=== PATIENT | male | born 2005 | race Hispanic/Latino ===

== ENCOUNTER 2023-12-01 09:55 | Emergency (ER) | payer SELFPAY ==
[2023-12-01] VITALS (15 sets, daily range): BP systolic 101–133; BP diastolic 60–88
[2023-12-01] MEDS ORDERED: METHOCARBAMOL500 MG PO (12:42)
[2023-12-01] MEDS ORDERED: IBUPROFEN600 MG PO (12:42)
== END 2023-12-01 14:05 | disposition home or self-care (01) | DRG 605 ==
LOC: ED 09:55
DX: S00.00XA Unspecified superficial injury of scalp, initial encounter (principal); S80.911A Unspecified superficial injury of right knee, initial encounter; S70.911A Unspecified superficial injury of right hip, initial encounter; S40.911A Unspecified superficial injury of right shoulder, initial encounter; V13.4XXA Pedal cycle driver injured in collision with car, pick-up truck or van in traffic accident, initial encounter